=== PATIENT | female | born 2000 | race Caucasian/White ===

== ENCOUNTER 2021-08-17 21:08 | Emergency (ER) | payer SELFPAY ==
[~2021-08-17] VITALS: Ht 165.1 cm; Wt 59.1 kg
[~2021-08-17 21:08] MED LIST: ACETAMINOPHEN W1 TA6 PO; AMOXICILLI400 MG/5 M PO; CEPHALEXIN250 M1 PO; CEPHALEXIN250 MG/5 M PO; LORTAB ELIX0.5 MG/ML PO; NO HOME MEDICATIONS
[2021-08-17 22:00] VITALS: BP 116/82; PULSE 82; TEMP 99
== END 2021-08-17 22:00 | disposition home or self-care (01) ==
LOC: COL.ER 21:08
DX: S61.215A Laceration without foreign body of left ring finger without damage to nail, initial encounter (principal); Z23 Encounter for immunization; W26.0XXA Contact with knife, initial encounter; Y93.G3 Activity, cooking and baking; Y92.009 Unspecified place in unspecified non-institutional (private) residence as the place of occurrence of the external cause